=== PATIENT | female | born 1995 | race Caucasian/White ===

== ENCOUNTER 2022-08-07 05:30 | Inpatient (IN) | payer OTHER ==
[2022-08-07] MEDS ORDERED: Ondansetron PF 4 MG/2 ML Vial IVP PRN (17:56)
[2022-08-07] MEDS ORDERED: Diphenoxylate HCl/Atropine Tablet PO PRN ×2 (17:56)
[2022-08-07] MEDS ORDERED: hydrALAZINE 20 MG/ML VIAL SLOW IVP PRN (17:56)
[2022-08-07] MEDS ORDERED: HYDROcodone/Acetaminophen 5/325 mg Tablet PO PRN (17:56)
[2022-08-07] MEDS ORDERED: Misoprostol 200 MCG TAB PR PRN (17:56)
[2022-08-07] MEDS ORDERED: Lidocaine 1% (PF) 30 ML VIAL SC PRN (17:56)
[2022-08-07] MEDS ORDERED: Methylergonovine 0.2 MG/ML VIAL IM PRN (17:56)
[2022-08-07] MEDS ORDERED: Butorphanol Tartrate 1 MG/ML VIAL SLOW IVP PRN (17:56)
[2022-08-07] MEDS ORDERED: Acetaminophen 500 MG TAB PO PRN (17:56)
[2022-08-07] MEDS ORDERED: Ibuprofen 800 MG TAB PO PRN (17:56)
[2022-08-07] MEDS ORDERED: Zolpidem Tartrate 5 MG TAB PO PRN (17:56)
[2022-08-07] MEDS ORDERED: Docusate 100 MG CAP PO PRN (17:56)
[2022-08-07] MEDS ORDERED: Carboprost 250 MCG/ML AMP IM PRN (17:56)
[2022-08-07] MEDS ORDERED: Promethazine HCl 25 MG/ML VIAL IM PRN (17:56)
[2022-08-07] MEDS ORDERED: Lactated Ringer's 1,000 ML IV SCH (18:00)
[2022-08-07] MEDS ORDERED: NS w/ Oxytocin 30 units 500 ML IV SCH (18:00)
[2022-08-07 18:54] LABS: Hemoglobin 10.6 g/dL (12.0-15.5); Mean Corpuscular HGB CONC 34.1 g/dL (32.0-36.0); Mean Corpuscular Hemoglobin 28.4 pg (27.0-33.0); Mean Corpuscular Volume 83.4 fl (81.6-98.3); Mean Platelet Volume 9.7 fl (7.4-10.4); Platelet Count 190 10x3/uL (150-450); RBC Distribution Width 13.2 % (11.5-14.5); Red Blood Cell (RBC) Count 3.73 10x6/uL (3.90-5.03); White Blood Cell (WBC) Count 8.7 10x3/uL (3.5-10.5)
[2022-08-07 19:03] VITALS: BMI 29.4
[2022-08-07 19:25] LABS: HBSAg Index 0.19 S/CO (0-0.99); Hep B Surf Ag Non-Reactive S/CO (NonReactive); Syphilis Antibody Nonreactive (Nonreactive); Syphilis Antibody Index 0.02 S/CO (<1.00 Non-Reactive)
[2022-08-07] MEDS: Misoprostol 100 MCG TAB VAG SCH (19:26)
[2022-08-07 20:01] LABS: SARS-CoV-2 NAA Rapid Test Not Detected (NotDetected)
[2022-08-08] MEDS ORDERED: Fentanyl 2 mcg/Bup 0.1% Cadd 100 ML ONE (02:02)
[2022-08-08] MEDS: NS w/ Oxytocin 30 units 500 ML IV SCH ×2 (02:45→03:21)
[2022-08-08] MEDS ORDERED: Measles/Mumps/Rubella 10 MCG/0.5 ML VIAL SC ONE (05:41)
[2022-08-08] MEDS ORDERED: Misoprostol 200 MCG TAB VAG PRN (05:41)
[2022-08-08] MEDS ORDERED: NS w/ Oxytocin 30 units 500 ML IV SCH (05:41)
[2022-08-08] MEDS ORDERED: hydrALAZINE 20 MG/ML VIAL SLOW IVP PRN (05:41)
[2022-08-08] MEDS ORDERED: Promethazine HCl 25 MG/ML VIAL IM PRN (05:41)
[2022-08-08] MEDS ORDERED: Varicella virus, LIVE 0.5 ML VIAL SC ONE (05:41)
[2022-08-08] MEDS ORDERED: Milk Of Magnesia 30 ML UDCUP PO PRN (05:41)
[2022-08-08] MEDS ORDERED: diphenhydrAMINE 25 MG CAP PO PRN (05:41)
[2022-08-08] MEDS ORDERED: HYDROcodone/Acetaminophen 5/325 mg Tablet PO PRN (05:41)
[2022-08-08] MEDS ORDERED: Benzocaine-Menthol 82.5 ML CAN TOP PRN (05:41)
[2022-08-08] MEDS ORDERED: Lanolin Ointment 7 GM TUBE TOP PRN (05:41)
[2022-08-08] MEDS ORDERED: Preparation H Ointment 28 GM TUBE PR PRN (05:41)
[2022-08-08] MEDS ORDERED: Bisacodyl 10 MG SUPP PR PRN (05:41)
[2022-08-08] MEDS ORDERED: Zolpidem Tartrate 5 MG TAB PO PRN (05:41)
[2022-08-08] MEDS ORDERED: Boostrix 0.5 ML (Tdap) VIAL (>/=7 yrs of age) IM ONE (05:41)
[2022-08-08] MEDS ORDERED: Ondansetron PF 4 MG/2 ML Vial IVP PRN (05:41)
[2022-08-08] MEDS: Ibuprofen 800 MG TAB PO SCH ×2 (06:12→15:35)
[2022-08-08] MEDS: Ferrous Sulfate 325 MG TAB PO SCH (07:24)
[2022-08-08] MEDS: Misoprostol 100 MCG TAB VAG SCH (07:25)
[2022-08-08] MEDS: Prenatal Vitamin 1 TAB PO SCH (08:00)
[2022-08-08] MEDS: Docusate 100 MG CAP PO SCH (08:00)
[2022-08-09] MEDS: Docusate 100 MG CAP PO SCH ×2 (01:06→08:03)
[2022-08-09] MEDS: Ibuprofen 800 MG TAB PO SCH ×2 (01:07→07:21)
[2022-08-09 05:20] LABS: Hemoglobin 11.2 g/dL (12.0-15.5); Mean Corpuscular HGB CONC 33.9 g/dL (32.0-36.0); Mean Corpuscular Hemoglobin 28.6 pg (27.0-33.0); Mean Corpuscular Volume 84.4 fl (81.6-98.3); Mean Platelet Volume 9.7 fl (7.4-10.4); Platelet Count 180 10x3/uL (150-450); RBC Distribution Width 13.5 % (11.5-14.5); Red Blood Cell (RBC) Count 3.91 10x6/uL (3.90-5.03); White Blood Cell (WBC) Count 9.7 10x3/uL (3.5-10.5)
[2022-08-09] MEDS: Ferrous Sulfate 325 MG TAB PO SCH (07:21)
[2022-08-09 08:02] VITALS: BP 103/57; TEMP 98.4
[2022-08-09] MEDS: Prenatal Vitamin 1 TAB PO SCH (08:03)
== END 2022-08-09 11:10 | disposition home or self-care (01) | DRG 807 ==
LOC: CSHLD 17:35 → CSHPED 08-08 05:27
PROVIDERS: ADMIT Obstetrics & Gynecology; ATTEND Obstetrics & Gynecology
PROC: 10E0XZZ Delivery of Products of Conception, External Approach (ICD-10-PCS; principal; 2022-08-08)
DX: O80 Encounter for full-term uncomplicated delivery (principal); Z37.0 Single live birth; Z3A.39 39 weeks gestation of pregnancy; Z20.822 Contact with and (suspected) exposure to COVID-19
CPT/HCPCS: 36415; 85027; 86780; 86850; 86900; 86901; 87340; J2590; U0002